=== PATIENT | female | born 1960 | race Caucasian/White ===

== ENCOUNTER 2022-05-16 06:04 | Emergency (ER) | payer OTHER ==
[~2022-05-16] VITALS: Ht 160 cm; Wt 59.1 kg
[~2022-05-16 06:04] MED LIST: PROZAC
[2022-05-16] MEDS ORDERED: SODIUM CHLORIDE 0.9% 1,000 ML IVB ONE (06:45)
[2022-05-16] MEDS ORDERED: ONDANSETRON HCL 4 MG/2 ML VIAL IV ONE (06:45)
[2022-05-16 07:39] LABS: Basophils # (auto) 0 10 ^3/uL (0-0.2); Eosinophils # (auto) 0 10 ^3/uL (0-0.8); Hemoglobin 12.9 g/dL (12.2-16.2); Red Cell Distribution Width 13.6 % (11.8-14.3)
[2022-05-16 07:41] LABS: Basophils % (auto) 0.2 % (0.0-2.0); Lymphocytes # (auto) 0.9 10 ^3/uL (0.4-5.4); Lymphocytes % (auto) 3.4 % (10.0-50.0); Mean Corpuscular Hemoglobin 28.3 pg (28.0-32.0); Monocytes % (auto) 3.8 % (0.0-12.0); Neutrophils # (auto) 23.6 10 ^3/uL (1.6-8.6); Neutrophils % (auto) 92.6 % (37.0-80.0); Red Blood Cells 4.53 10^6/uL (4.0-5.20); White Blood Cell 25.4 10^3/uL (4.4-10.8)
[2022-05-16 07:45] LABS: Calcium 9.3 mg/dL (8.5-10.1); Potassium 3.7 mmol/L (3.5-5.1)
[2022-05-16 07:48] LABS: INR 1.04 (0.9-1.15); Partial Thromboplastin Time 28.2 sec (24.6-33.4)
[2022-05-16 07:49] LABS: BUN/Creatinine Ratio 18.2; Bilirubin, Total 0.6 mg/dL (0.2-1.0); Total Protein 8.1 g/dL (6.4-8.2)
[2022-05-16 08:01] LABS: Urine Bacteria FEW /hpf (None Seen); Urine Blood Negative /uL (Negative); Urine Hyaline Cast FEW /lpf (0 - 2); Urine Mucus FEW (None Seen); Urine Specific Gravity 1.018 (1.001-1.035); Urine WBC 1 /hpf (0 - 5)
[2022-05-16 14:53] VITALS: BP 116/68
== END 2022-05-16 15:25 | disposition short-term general hospital (02) ==
LOC: ER 06:04
DX: R10.84 Generalized abdominal pain (principal); R11.10 Vomiting, unspecified; D72.829 Elevated white blood cell count, unspecified; Z20.822 Contact with and (suspected) exposure to COVID-19
CPT/HCPCS: 36415; 74176; 80053; 81001; 82150; 83690; 85025; 85610; 85730; 87426; 93005; 96361; 96374; 99285; J2405; J7030